=== PATIENT | male | born 1945 | race Caucasian/White ===

== ENCOUNTER 2016-06-12 10:43 | Inpatient (IN) | payer MEDICARE, OTHER ==
[2016-06-09 10:05] LABS: BASOPHILS 0.6 %; BASOPHILS ABSOLUTE 0.05 10/3/uL (0.0-0.16); EOSINOPHILS 6.1 %; EOSINOPHILS ABSOLUTE 0.48 10/3/uL (0.0-0.53); HEMATOCRIT 43.2 % (40.0-51.0); HEMOGLOBIN 14.1 g/dL (13.6-17.8); IMMATURE GRANULOCYTES 0.4 %; IMMATURE GRANULOCYTES ABSOLUTE 0.03 10/3/uL (0.0-0.11); LYMPHOCYTES 24.5 %; LYMPHOCYTES ABSOLUTE 1.93 10/3/uL (0.67-4.30); MEAN CORPUS HGB CONC 32.6 g/dL (32.0-36.0); MEAN CORPUSCULAR HEMOGLOB 31.1 pg (26.0-34.0); MEAN CORPUSCULAR VOLUME 95.4 fL (80-100); MEAN PLATELET VOLUME 11.2 fL (9.2-13.0); MONOCYTES ABSOLUTE 0.87 10/3/uL (0.21-1.20); NEUTROPHILS 57.4 %; NEUTROPHILS ABSOLUTE 4.52 10/3/uL (2.02-8.40); RBC DISTRIBUTION WIDTH 15.2 % (12.0-16.0); RED CELL COUNT 4.53 10/6/uL (4.7-6.1); WHITE BLOOD CELLS 7.9 10/3/uL (4.5-10.5)
[2016-06-09 10:06] LABS: MANUAL DIFF NO %; PLATELET COUNT 179 10/3/uL (150-400)
[2016-06-09 10:23] LABS: ALBUMIN 3.5 G/DL (3.5-5.0); ALKALINE PHOSPHATASE 98 U/L (45-117); BUN (BLOOD UREA NITROGEN) 18 MG/DL (6-23); CALCIUM, SERUM 9.2 MG/DL (8.5-10.4); CHLORIDE, SERUM 107 MMOL/L (96-112); CO2 (CARBON DIOXIDE) 27 MMOL/L (24-34); CREATININE 0.92 MG/DL (0.70-1.30); GFR AFRICAN AMERICAN 97 ML/MIN (>=60); GFR NON AFRICAN AMERICAN 84 ML/MIN (>=60); GLOBULIN 3.6 G/DL (2.5-4.1); GLUCOSE, SERUM 78 MG/DL (60-99); POTASSIUM, SERUM 4.3 MMOL/L (3.5-5.3); SGOT(AST) 22 U/L (5-40); SGPT(ALT) 21 U/L (5-65); SODIUM, SERUM 145 MMOL/L (135-148); TOTAL BILIRUBIN 0.8 MG/DL (0-1.2); TOTAL PROTEIN 7.1 G/DL (6.0-8.5)
--- NOTE | ~2016-06-12 | OP ---
Record Of Operation [facility] [address] [place]. [address] NAME: MARIO MULLER JR : 45 STATUS : ADM IN PAT#: [id number] AGE: 70 ADM/REG DATE : 06/12/16 MR#: [id number] REPORT SERV DATE: 06/12/16 DICTATED BY: LULA GAFFNEY JR. DATE: 06/12/16 REPORT STATUS : Draft TRANSCRIBED BY: MODL DATE: 06/12/16 DATE OF PROCEDURE: 06/12/2016 SURGEON: Lula Gaffney M.D. SALES REPRESENTATIVE [employer]: [place]. PROCEDURE: Rigid proctoscopy; removal of venous port; closure of loop colostomy. PREOPERATIVE DIAGNOSIS: Rectal cancer with history of low anterior resection, diverting colostomy. POSTOPERATIVE DIAGNOSIS: Rectal cancer with history of low anterior resection, diverting colostomy. ANESTHESIA: General. INDICATIONS: The patient had stage III carcinoma of the rectum. He underwent low anterior resection with diverting loop colostomy, initiated adjuvant chemoradiation therapy of the chemotherapy, elected not to complete the recommended course of therapy as no evidence of disease and desires colostomy closure and port removal. FINDINGS: Proctoscopy showed a very minimal stricture at the anastomosis with no other abnormality. Port was removed successfully and the ostomy was closed without complication. DESCRIPTION OF PROCEDURE: With adequate general anesthesia, the patient was initially placed in the lithotomy position. Proctoscope was introduced with the above-noted findings and the patient was placed supine. The chest and abdomen were prepped and draped sterilely. The previous right infraclavicular incision was reopened and dissection was carried down sharply to identify the port, it was dissected free of the pocket and the catheter was removed intact from the entrance site. This was closed Vicryl. The wound was closed with subcutaneous Vicryl and dermal Monocryl. Then, the incision was made at the mucocutaneous junction around the ostomy. This was freed up the bowel from the surrounding fascia, peritoneum. This appeared viable and healthy. It was then closed in the anterior wall with multiple sutures of 3-0 silk and adjacent fat was placed over this and secured in place. It was placed to separate the peritoneal cavity. The fascia was then closed with running 0 PDS. A wound VAC was placed into the wound bed. The patient left the operating room in satisfactory condition. BLOOD LOSS: 30 mL. PAMELLA/JORGE Lula Gaffney Record Of Operation [place] [id number] [facility] [place]. [address] NAME: MARIO MULLER JR : 45 STATUS : ADM IN [facility]#: [id number] AGE: 70 ADM/REG DATE : 06/12/16 MR#: [id number] REPORT SERV DATE: 06/12/16 DICTATED BY: LULA GAFFNEY JR. DATE: 06/12/16 REPORT STATUS : Draft TRANSCRIBED BY: JORGE DATE: 06/12/16 Rachell Orellana / [id number] CC: Lula Gaffney Jr., M.D.
--- NOTE | ~2016-06-12 | DS ---
Discharge Summary [facility] [address] [place]. [address] NAME: MARIO MULLER JR : 45 STATUS : DIS IN PAT#: [id number] AGE: 70 ADM/REG DATE : 06/12/16 MR#: [id number] REPORT SERV DATE: 06/20/16 DICTATED BY: LULA GAFFNEY JR. DATE: 06/19/16 REPORT STATUS : Draft TRANSCRIBED BY: JORGE DATE: 06/19/16 Data Collection from hospitalization DISCHARGE DIAGNOSES: 1. Rectal cancer with history of low anterior resection, diverting colostomy. 2. History of atrial fibrillation, status post pacemaker insertion. CONSULTANTS: None. PROCEDURES PERFORMED: Rigid proctoscopy, removal of venous port, closure of loop colostomy 06/12/2016. PATHOLOGY: Port-A-Cath, see gross description. MEDICATIONS: Plavix 75 mg daily, multivitamin with minerals one daily, aspirin 81 mg every morning, Tri-Flex one every morning, Tylenol 500 mg every 6 hours as needed. CONDITION AT DISCHARGE: Upon discharge, he did appear to be doing well and had no complaints. DISPOSITION: He was discharged home to continue a GI soft diet with activity as tolerated. He was to follow up with me in the office on 06/20/2016. HOSPITAL COURSE: This patient had stage III carcinoma of the rectum. He underwent low anterior resection with diverting loop colostomy, initiated adjuvant chemoradiation therapy, of the chemotherapy, elected not to complete the recommended course of therapy as no evidence of disease and desires colostomy closure and port removal. He was admitted for this and further treatment. Upon admission to the hospital, he had been taken to the operating room where he did undergo the above colostomy closure and port removal. He did tolerate this well and was transferred to the recovery room. On postop day #1, he was afebrile and his vital signs were stable. He did appear to be doing well postoperatively. He had been placed on a full liquid diet. On postop day #2, he was continued on supportive care and had no new complaints noted. His diet was being slowly advanced. On postop day #3, his incision looked good and his Ceja catheter had been removed. He continued to tolerate his diet without nausea or vomiting. He did remain in stable condition. On 06/16/2016, which was postop day #4, he was then discharged with the above instructions. Information collected by: Ida Lal. I submit the above information as my discharge summary. SHILPA/JORGE Lula Gaffney Jr., M.D. / [id number] CC: Discharge Summary [address] [address] NAME: MARIO MULLER : 45 STATUS : DIS IN PAT#: [id number] AGE: 70 ADM/REG DATE : 06/12/16 MR#: [id number] REPORT SERV DATE: 06/20/16 DICTATED BY: LULA GAFFNEY JR. DATE: 06/19/16 REPORT STATUS : Draft TRANSCRIBED BY: JORGE DATE: 06/19/16 Rachell Driver Jr., PA-C
[~2016-06-12 10:43] MED LIST: ACET500CAP PO; ALEVE220 MG PO; ASAB PO; MULTIPLE VIT PO; MULTIVIT/MIN PO; PCET PO; PLAVIX PO; [UNRECOGNIZED DRUG - OTHER]; [UNRECOGNIZED DRUG - OTHER] PO
[2016-06-13 07:29] LABS: BASOPHILS 0.1 %; BASOPHILS ABSOLUTE 0.01 10/3/uL (0.0-0.16); EOSINOPHILS 0 %; HEMOGLOBIN 13.1 g/dL (13.6-17.8); IMMATURE GRANULOCYTES 0.3 %; IMMATURE GRANULOCYTES ABSOLUTE 0.05 10/3/uL (0.0-0.11); LYMPHOCYTES ABSOLUTE 1.13 10/3/uL (0.67-4.30); MANUAL DIFF NO %; MEAN CORPUS HGB CONC 32.8 g/dL (32.0-36.0); MEAN CORPUSCULAR HEMOGLOB 31.8 pg (26.0-34.0); MEAN CORPUSCULAR VOLUME 97.1 fL (80-100); MEAN PLATELET VOLUME 10.8 fL (9.2-13.0); MONOCYTES 6.7 %; MONOCYTES ABSOLUTE 1.07 10/3/uL (0.21-1.20); NEUTROPHILS 85.9 %; NEUTROPHILS ABSOLUTE 13.81 10/3/uL (2.02-8.40); PLATELET COUNT 140 10/3/uL (150-400); RBC DISTRIBUTION WIDTH 14.8 % (12.0-16.0); RED CELL COUNT 4.12 10/6/uL (4.7-6.1); WHITE BLOOD CELLS 16.1 10/3/uL (4.5-10.5)
[2016-06-13 07:40] LABS: CALCIUM, SERUM 8.5 MG/DL (8.5-10.4); CHLORIDE, SERUM 104 MMOL/L (96-112); CO2 (CARBON DIOXIDE) 25 MMOL/L (24-34); CREATININE 0.84 MG/DL (0.70-1.30); GFR AFRICAN AMERICAN 103 ML/MIN (>=60); GFR NON AFRICAN AMERICAN 89 ML/MIN (>=60); POTASSIUM, SERUM 4.3 MMOL/L (3.5-5.3); SODIUM, SERUM 140 MMOL/L (135-148)
[2016-06-13 07:41] LABS: BUN (BLOOD UREA NITROGEN) 11 MG/DL (6-23); GLUCOSE, SERUM 116 MG/DL (60-99)
[2016-06-14 08:19] LABS: BASOPHILS 0.3 %; BASOPHILS ABSOLUTE 0.03 10/3/uL (0.0-0.16); EOSINOPHILS 0.9 %; HEMATOCRIT 39.4 % (40.0-51.0); HEMOGLOBIN 12.8 g/dL (13.6-17.8); IMMATURE GRANULOCYTES 0.6 %; IMMATURE GRANULOCYTES ABSOLUTE 0.06 10/3/uL (0.0-0.11); LYMPHOCYTES 11.8 %; LYMPHOCYTES ABSOLUTE 1.27 10/3/uL (0.67-4.30); MEAN CORPUS HGB CONC 32.5 g/dL (32.0-36.0); MEAN CORPUSCULAR HEMOGLOB 31.4 pg (26.0-34.0); MEAN CORPUSCULAR VOLUME 96.8 fL (80-100); MEAN PLATELET VOLUME 10.9 fL (9.2-13.0); MONOCYTES 8.4 %; PLATELET COUNT 139 10/3/uL (150-400); RBC DISTRIBUTION WIDTH 14.9 % (12.0-16.0); RED CELL COUNT 4.07 10/6/uL (4.7-6.1); WHITE BLOOD CELLS 10.8 10/3/uL (4.5-10.5)
[2016-06-14 08:20] LABS: MANUAL DIFF NO %
[2016-06-14 08:29] LABS: BUN (BLOOD UREA NITROGEN) 11 MG/DL (6-23); CHLORIDE, SERUM 105 MMOL/L (96-112); CO2 (CARBON DIOXIDE) 30 MMOL/L (24-34); CREATININE 0.88 MG/DL (0.70-1.30); GFR AFRICAN AMERICAN 101 ML/MIN (>=60); GFR NON AFRICAN AMERICAN 87 ML/MIN (>=60); GLUCOSE, SERUM 105 MG/DL (60-99); POTASSIUM, SERUM 3.7 MMOL/L (3.5-5.3); SODIUM, SERUM 143 MMOL/L (135-148)
[2016-06-14 08:30] LABS: CALCIUM, SERUM 8.8 MG/DL (8.5-10.4)
[2016-06-15 06:22] LABS: BASOPHILS 0.3 %; BASOPHILS ABSOLUTE 0.03 10/3/uL (0.0-0.16); EOSINOPHILS 2.7 %; EOSINOPHILS ABSOLUTE 0.25 10/3/uL (0.0-0.53); HEMATOCRIT 38.2 % (40.0-51.0); HEMOGLOBIN 12.3 g/dL (13.6-17.8); IMMATURE GRANULOCYTES 0.4 %; IMMATURE GRANULOCYTES ABSOLUTE 0.04 10/3/uL (0.0-0.11); LYMPHOCYTES 14.5 %; LYMPHOCYTES ABSOLUTE 1.33 10/3/uL (0.67-4.30); MEAN CORPUS HGB CONC 32.2 g/dL (32.0-36.0); MEAN CORPUSCULAR HEMOGLOB 31.2 pg (26.0-34.0); MEAN PLATELET VOLUME 10.9 fL (9.2-13.0); MONOCYTES 8.7 %; NEUTROPHILS 73.4 %; NEUTROPHILS ABSOLUTE 6.75 10/3/uL (2.02-8.40); PLATELET COUNT 150 10/3/uL (150-400); RED CELL COUNT 3.94 10/6/uL (4.7-6.1); WHITE BLOOD CELLS 9.2 10/3/uL (4.5-10.5)
[2016-06-15 06:23] LABS: MANUAL DIFF NO %
[2016-06-15 06:27] LABS: BUN (BLOOD UREA NITROGEN) 11 MG/DL (6-23); CALCIUM, SERUM 8.7 MG/DL (8.5-10.4); CHLORIDE, SERUM 105 MMOL/L (96-112); CO2 (CARBON DIOXIDE) 30 MMOL/L (24-34); CREATININE 0.83 MG/DL (0.70-1.30); GFR AFRICAN AMERICAN 103 ML/MIN (>=60); GFR NON AFRICAN AMERICAN 89 ML/MIN (>=60); GLUCOSE, SERUM 88 MG/DL (60-99); POTASSIUM, SERUM 3.8 MMOL/L (3.5-5.3); SODIUM, SERUM 144 MMOL/L (135-148)
== END 2016-06-16 12:28 | disposition home or self-care (01) | DRG 331 ==
LOC: SDC/OF 10:43 → PACU 14:39 → 5SO 17:16
PROVIDERS: Specialist
PROC: 0DJD8ZZ Inspection of Lower Intestinal Tract, Via Natural or Artificial Opening Endoscopic (ICD-10-PCS; 2016-06-12)
PROC: 3E0T3CZ (ICD-10-PCS; 2016-06-12)
PROC: 0DQE0ZZ Repair Large Intestine, Open Approach (ICD-10-PCS; principal; 2016-06-12 12:45)
PROC: 0JPT0XZ Removal of Tunneled Vascular Access Device from Trunk Subcutaneous Tissue and Fascia, Open Approach (ICD-10-PCS; 2016-06-12 12:45)
DX: Z43.3 Encounter for attention to colostomy (principal); I48.2 Chronic atrial fibrillation; Z85.048 Personal history of other malignant neoplasm of rectum, rectosigmoid junction, and anus; Z92.3 Personal history of irradiation; Z92.21 Personal history of antineoplastic chemotherapy; Z79.82 Long term (current) use of aspirin; Z79.899 Other long term (current) drug therapy; Z95.0 Presence of cardiac pacemaker; Z79.02 Long term (current) use of antithrombotics/antiplatelets
CPT/HCPCS: 36415; 80048; 80053; 83735; 85025; 86850; 86900; 86901; 88300; A9270-GY; J0690; J2250; J2270; J2405; J2550; J2710; J2795; J3010; P9045

== ENCOUNTER 2016-07-03 11:05 | Inpatient (IN) | payer MEDICARE, OTHER ==
--- NOTE | ~2016-07-03 | HP ---
History And Physical [facility] [id number] [place]. [address] NAME: MARIO ALLISON JR : 45 STATUS : ADM [place] PAT#: [id number] AGE: 70 ADM/REG DATE : 07/03/16 MR#: [id number] REPORT SERV DATE: 07/03/16 DICTATED BY: NOAM LEWIS DATE: 07/03/16 REPORT STATUS : Draft TRANSCRIBED BY: MODL DATE: 07/03/16 DATE OF ADMISSION: 07/03/2016 CHIEF COMPLAINT: Chest pain. HISTORY OF PRESENT ILLNESS: Mr. Allison is a 70-year-old man I take care of with a pacemaker as well as atrial arrhythmia. He is maintained on aspirin and Plavix. Overall, he has done fairly well from a cardiac standpoint, however, he has had some other difficulties recently such as an ostomy and then a recent takedown of that. Over the last couple of weeks, he has had a couple of episodes of chest pressure. He was pressure washing his house yesterday and the pressure became worse. It radiated down into his left arm. He is here today with those complaints. His troponin is not negative. His electrocardiogram is not focal. PAST MEDICAL HISTORY: 1. Atrial flutter. 2. Atrial fibrillation. 3. Bradycardia. SOCIAL HISTORY: He is . He does not smoke. FAMILY HISTORY: Noncontributory. HOME MEDICATIONS: 1. Plavix 75 mg daily. 2. Aspirin 81 mg daily. ALLERGIES: NO KNOWN DRUG ALLERGIES. REVIEW OF SYSTEMS: A 10-system review was asked and is basically negative except for noted above in the history of present illness. PHYSICAL EXAMINATION: VITAL SIGNS: Blood pressure 138/80, heart rate 77. GENERAL: Mr. Allison is a well-developed man in no acute distress. He does not open his eyes a single time while we conduct the history and physical, although he is completely alert. HEENT: Negative. He is not dehydrated. NECK: There is no JVD in his neck. LUNGS: Clear. CARDIAC: Heart tones are regular. Slight murmur is heard. ABDOMEN: The abdominal exam is negative. He has good bowel sounds. EXTREMITIES: Does not show edema. NEUROLOGIC: He moves all four extremities equally. SKIN: Does not show any bruising or rash. LAB DATA: The white blood cell count is 12, hematocrit 39, platelet count 249. Sodium 136, History And Physical [facility] [address] [place]. [address] NAME: MARIO ALLISON JR : 45 STATUS : ADM [place] PAT#: [id number] AGE: 70 ADM/REG DATE : 07/03/16 MR#: [id number] REPORT SERV DATE: 07/03/16 DICTATED BY: NOAM LEWIS DATE: 07/03/16 REPORT STATUS : Draft TRANSCRIBED BY: MODL DATE: 07/03/16 potassium 3.7, BUN 9, creatinine 0.67. INR 1.2. The troponin is 0.05. Magnesium 2.1. Electrocardiogram, this demonstrates atrial pacing and ventricular pacing. No acute change otherwise. Device interrogation, this does show an episode of SVT earlier today. He had atrial arrhythmia a couple of days ago. No recent ventricular tachycardia, although that has definitely been seen on interrogations over the past couple of months. IMPRESSION: 1. Chest pain. 2. Ventricular tachycardia on recent device interrogations. 3. Negative stress test, 03/2016. 4. Troponin 0.05. PLAN: Mr. Allison had a negative stress test in the last couple of months. Of note, he has had some ventricular tachycardia seen on device interrogations this year. He now has fairly typical symptoms. The troponin is 0.05. We will treat this as an acute coronary syndrome. I will start IV heparin. I will start a beta-everton. He will remain on his aspirin and Plavix. I will ask Interventional Cardiology to see him and consider cardiac catheterization. I spoke to the patient and his in detail about this possibility. They agree to proceed in this manner. They understand that a stress test can be falsely negative. [facility]/JORGE Noam Lewis M.D. / [id number] CC: Rachell Mclaughlin PA-C
--- NOTE | ~2016-07-03 | OP ---
Record Of Operation [facility] [address] [place]. [address] NAME: MARIO MULLER JR : 45 STATUS : ADM [place] PAT#: [id number] AGE: 70 ADM/REG DATE : 07/03/16 MR#: [id number] REPORT SERV DATE: 07/04/16 DICTATED BY: OSMAR MCCORD DATE: 07/04/16 REPORT STATUS : Draft TRANSCRIBED BY: MODL DATE: 07/04/16 DATE OF PROCEDURE: 07/04/2016 PTCA REPORT INDICATION FOR THIS PROCEDURE: Acute coronary syndrome. PROCEDURE IN DETAIL: The patient had already been prepped and draped. A 6-Tongan sheath was in place in the right femoral artery from preceding cardiac catheterization. Moderate IV sedation was administered. A 6 VL4 coronary guiding catheter was advanced into the left coronary ostium. Left coronary artery injections confirmed the presence of a 90% stenosis of the mid left circumflex coronary artery. A 0.014 Luge guidewire was passed across the lesion and positioned distally. The vessel was then dilated with a 2.5/10 Cutting balloon at up to 12 atmospheres of pressure for 30 seconds in duration. A 2.75/20 Synergy stent was then deployed across the lesion up to 15 atmospheres pressure for 15 seconds in duration. Following removal of balloon and guidewire, final left coronary artery injection showed 0% residual stenosis with WILL grade 3 distal flow. The guiding catheter was removed. The sheath was left in place. There were no apparent complications. TOTAL CONTRAST USED: 200 mL. Total radiation exposure was 822 mGy. ESTIMATED BLOOD LOSS: No significant blood loss occurred. IMPRESSION: Successful Cutting balloon percutaneous transluminal coronary angioplasty and placement of drug-eluting stent in mid left circumflex coronary artery. [place]/JORGE Osmar Mccord M.D., [place]. / [id number] CC: Rachell Mclaughlin PA-C
--- NOTE | ~2016-07-03 | OP ---
Record Of Operation [facility] [address] [place]. [address] NAME: MARIO MULLER JR : 45 STATUS : ADM [place] PAT#: [id number] AGE: 70 ADM/REG DATE : 07/03/16 MR#: [id number] REPORT SERV DATE: 07/04/16 DICTATED BY: OSMAR MCCORD DATE: 07/04/16 REPORT STATUS : Draft TRANSCRIBED BY: JORGE DATE: 07/04/16 DATE OF PROCEDURE: 07/04/2016 CARDIAC CATHETERIZATION REPORT INDICATION FOR THIS PROCEDURE: Acute coronary syndrome. PROCEDURE IN DETAIL: The patient was prepped and draped in the usual sterile fashion. Monitored IV sedation was administered. Adequate anesthesia was obtained over the right femoral vessels using lidocaine infiltration. Using the Seldinger technique, 6-Palestinian sheath was placed in the right femoral artery. A 6 FL4 coronary catheter was advanced to the left coronary ostium. Left coronary injections were performed in multiple views. Left coronary catheter was then exchanged for 6 FR4 coronary catheter, which was advanced to the right coronary ostium. Right coronary injections were then performed with the KAY and PARRY views. The right coronary catheter was then exchanged for 6-Palestinian pigtail catheter, which was advanced in the left ventricular cavity. Pressures were measured across the aortic valve and left ventricular angiogram was obtained in the PARRY projection. The pigtail catheter was removed over a guidewire and sheath left in place in anticipation of subsequent angioplasty. There were no apparent complications. RESULTS: 1. Pressures: The left ventricular end-diastolic pressure was 15 mmHg. No gradient was present across the aortic valve. 2. Left ventricular angiogram: The left ventricle contracted normally with an estimated ejection fraction of 70%. 3. Coronary arteriograms: The left main coronary artery is normal. Left anterior descending coronary artery has a 40% mid vessel lesion. The left circumflex coronary artery has a 90% mid vessel stenosis. The right coronary artery is a dominant vessel with luminal irregularities, but no obstructive disease. IMPRESSION: 1. 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 2. Normal left ventricular contractility. PLAN: Proceed with stenting of mid left circumflex coronary artery. [place]/JORGE Osmar Mccord M.D., [place]oni[place]oni[place]oniC. / [id number] CC: Record Of Operation [place] [address] [place]. [address] NAME: MARIO MULLER JR : 45 STATUS : ADM [place] PAT#: [id number] AGE: 70 ADM/REG DATE : 07/03/16 MR#: [id number] REPORT SERV DATE: 07/04/16 DICTATED BY: OSMAR MCCORD DATE: 07/04/16 REPORT STATUS : Draft TRANSCRIBED BY: MODTeresa DATE: 07/04/16 Rachell Mclaughlin PA-C
[2016-07-03 10:47] LABS: BASOPHILS 0.3 %; BASOPHILS ABSOLUTE 0.03 10/3/uL (0.0-0.16); EOSINOPHILS 0.8 %; HEMOGLOBIN 13.2 g/dL (13.6-17.8); IMMATURE GRANULOCYTES 0.2 %; IMMATURE GRANULOCYTES ABSOLUTE 0.02 10/3/uL (0.0-0.11); LYMPHOCYTES 8.5 %; LYMPHOCYTES ABSOLUTE 1.02 10/3/uL (0.67-4.30); MEAN CORPUS HGB CONC 33.8 g/dL (32.0-36.0); MEAN CORPUSCULAR HEMOGLOB 31.6 pg (26.0-34.0); MEAN CORPUSCULAR VOLUME 93.3 fL (80-100); MEAN PLATELET VOLUME 9.8 fL (9.2-13.0); MONOCYTES 9.1 %; MONOCYTES ABSOLUTE 1.09 10/3/uL (0.21-1.20); NEUTROPHILS 81.1 %; PLATELET COUNT 249 10/3/uL (150-400); RBC DISTRIBUTION WIDTH 14.3 % (12.0-16.0); RED CELL COUNT 4.18 10/6/uL (4.7-6.1)
[2016-07-03 10:48] LABS: MANUAL DIFF NO %
[2016-07-03 10:54] LABS: INTERNATIONAL NORMAL RATI 1.2 UNITS (-); PARTIAL THROMBO TIME 31.4 SEC (22.5-37.2); PROTIME (NOT ORD) 14.9 SEC (12.0-14.5)
[2016-07-03 11:02] LABS: BUN (BLOOD UREA NITROGEN) 9 MG/DL (6-23); CHLORIDE, SERUM 100 MMOL/L (96-112); CO2 (CARBON DIOXIDE) 26 MMOL/L (24-34); CREATININE 0.67 MG/DL (0.70-1.30); GFR AFRICAN AMERICAN 113 ML/MIN (>=60); GFR NON AFRICAN AMERICAN 97 ML/MIN (>=60); POTASSIUM, SERUM 3.7 MMOL/L (3.5-5.3)
[2016-07-03 11:03] LABS: GLUCOSE, SERUM 106 MG/DL (60-99); SODIUM, SERUM 136 MMOL/L (135-148)
[2016-07-03 11:04] LABS: CHEST PAIN PROFILE TAT 0 Hrs 21 Mins; TROPONIN I 0.05 NG/ML (<0.05)
[2016-07-03] MEDS ORDERED: PLAVIX PO (12:33)
[2016-07-03] MEDS ORDERED: THERGRANM PO (12:33)
[2016-07-03] MEDS ORDERED: HALF81 PO (12:33)
[2016-07-03] MEDS ORDERED: BIST PO (12:34)
[2016-07-04 02:28] LABS: HEMATOCRIT 37.6 % (40.0-51.0); HEMOGLOBIN 12.8 g/dL (13.6-17.8); MEAN CORPUSCULAR HEMOGLOB 31.3 pg (26.0-34.0); MEAN CORPUSCULAR VOLUME 91.9 fL (80-100); MEAN PLATELET VOLUME 10.5 fL (9.2-13.0); PLATELET COUNT 270 10/3/uL (150-400); RBC DISTRIBUTION WIDTH 14.4 % (12.0-16.0); RED CELL COUNT 4.09 10/6/uL (4.7-6.1); WHITE BLOOD CELLS 14.2 10/3/uL (4.5-10.5)
[2016-07-04 02:34] LABS: MANUAL DIFF YES %
[2016-07-04 02:45] LABS: INTERNATIONAL NORMAL RATI 1.4 UNITS (-); PROTIME (NOT ORD) 16.9 SEC (12.0-14.5)
[2016-07-04 02:47] LABS: CALCIUM, SERUM 8.5 MG/DL (8.5-10.4); CHLORIDE, SERUM 99 MMOL/L (96-112); CHOL/HDL RATIO(NOT ORDER) 3.1 (0-5); CHOLESTEROL 141 MG/DL (< 200); CO2 (CARBON DIOXIDE) 25 MMOL/L (24-34); CREATININE 0.81 MG/DL (0.70-1.30); GFR AFRICAN AMERICAN 104 ML/MIN (>=60); GFR NON AFRICAN AMERICAN 90 ML/MIN (>=60); GLUCOSE, SERUM 119 MG/DL (60-99); HDL CHOLESTEROL 46 MG/DL (> 39); LDL CHOLESTEROL 82 MG/DL (< 130); NON-HDL CHOLESTEROL 95 MG/DL (< 160); POTASSIUM, SERUM 3.8 MMOL/L (3.5-5.3); SODIUM, SERUM 135 MMOL/L (135-148); TRIGLYCERIDE 65 MG/DL (< 150); TROPONIN I 0.03 NG/ML (<0.05)
[2016-07-04 02:55] LABS: BAND NEUTROPHILS 1 %; LYMPHOCYTES 12 %; MONOCYTES 8 %; MONOCYTES ABSOLUTE (CALC) 1.14 10/3/uL (0.21-1.20); NEUTROPHILS ABSOLUTE (CALC) 11.36 10/3/uL (2.02-8.40); PLATELET ESTIMATE ADQ (ADEQUATE); RBC MORPHOLOGY NORM (NORMAL); SEGMENTED NEUTROPHIL (0) 79 %; TOTAL NUCLEATED CELLS 100
[2016-07-04 03:10] LABS: BUN (BLOOD UREA NITROGEN) 14 MG/DL (6-23)
[2016-07-04 10:22] LABS: TROPONIN I <0.02 NG/ML (<0.05)
[2016-07-04 12:31] LABS: CHOL/HDL RATIO(NOT ORDER) 2.8 (0-5); CHOLESTEROL 129 MG/DL (< 200); HDL CHOLESTEROL 46 MG/DL (> 39); LDL CHOLESTEROL 68 MG/DL (< 130); NON-HDL CHOLESTEROL 83 MG/DL (< 160); TRIGLYCERIDE 79 MG/DL (< 150)
[2016-07-05] MEDS ORDERED: LOP25 PO (11:11)
[2016-07-05] MEDS ORDERED: LIPITOR40 PO (11:11)
== END 2016-07-05 11:28 | disposition home or self-care (01) | DRG 247 ==
LOC: ER 11:05 → CDU1 14:44 → SSU1 07-04 16:35
PROVIDERS: Emergency Medicine; Internal Medicine Cardiovascular Disease
PROC: 4A023N7 Measurement of Cardiac Sampling and Pressure, Left Heart, Percutaneous Approach (ICD-10-PCS; principal; 2016-07-04)
PROC: 027034Z Dilation of Coronary Artery, One Artery with Drug-eluting Intraluminal Device, Percutaneous Approach (ICD-10-PCS; 2016-07-04)
PROC: B2111ZZ Fluoroscopy of Multiple Coronary Arteries using Low Osmolar Contrast (ICD-10-PCS; 2016-07-04)
PROC: B2151ZZ Fluoroscopy of Left Heart using Low Osmolar Contrast (ICD-10-PCS; 2016-07-04)
DX: I25.110 Atherosclerotic heart disease of native coronary artery with unstable angina pectoris (principal); I47.2 Ventricular tachycardia; I48.2 Chronic atrial fibrillation; Z95.0 Presence of cardiac pacemaker; Z79.82 Long term (current) use of aspirin; Z79.02 Long term (current) use of antithrombotics/antiplatelets; Z98.890 Other specified postprocedural states; Z90.49 Acquired absence of other specified parts of digestive tract
CPT/HCPCS: 71010; 80048; 80061; 83735; 84484; 85025; 85610; 85730; 93005; 93458; 99152; 99153; 99285; A9270-GY; C1725; C1769; C1874; C1887; C9600; J0583; J2250; J2370; J2405; J3010; Q9967